=== PATIENT | female | born 1965 | race Caucasian/White ===

== ENCOUNTER 2016-06-03 19:11 | Inpatient (IN) | payer OTHER ==
[~2016-06-03] VITALS: Ht 160 cm; Wt 80.3 kg
--- NOTE | 2016-06-03 19:23 | ED CARDIAC/CP/PALPITATIONS ---
History of Present Illness General Chief Complaint: Chest Pain Stated Complaint: CP Source: patient, family Exam Limitations: no limitations Vital Signs & Intake/Output Vital Signs & Intake/Output Vital Signs Date Time Temp Pulse Resp B/P Pulse O2 O2 Flow FiO2 Ox Delivery Rate 06/03 2156 97.3 87 16 169/72 06/03 1925 98.3 87 20 163/97 98 Room Air Allergies Coded Allergies: No Known Allergies (06/03/16) Reconcile Medications Aspirin (Ecotrin*) 81 MG TABLET.DR 1 TAB PO DAILY HEART/BLOOD (Reported) Clopidogrel Bisulfate (Plavix) (Unknown Strength) TABLET (Unknown Dose) PO DAILY BLOOD THINNER (Reported) Fenofibrate Nanocrystallized (Fenofibrate) (Unknown Strength) TABLET (Unknown Dose) PO DAILY CHOLESTEROL/TRIGLYCERIDES (Reported) Lisinopril (Unknown Strength) TABLET (Unknown Dose) PO DAILY BP (Reported) Metformin HCl (Unknown Strength) TABLET (Unknown Dose) PO BID DM (Reported) Metoprolol Tartrate (Lopressor) (Unknown Strength) TABLET (Unknown Dose) PO BID HEART/BP (Reported) Multivitamin (Multi-Day Vitamins) 1 EACH TABLET 1 TAB PO DAILY SUPPLEMENT ( Reported) Nitroglycerin (Nitrostat) 0.4 MG TAB.SUBL 1 TAB SL AD PRN CHEST PAIN ( Reported) 1st sign of attack; may repeat every 5 minutes until relief; if pain persists after 3 tablets in 15 minutes, prompt medical att Triage Nurses Notes Reviewed? yes Onset: Abrupt Duration: hour(s): Timing: recent history Quality/Severity: moderate Location: central Radiation: left shoulder Activities at Onset: none Prior Chest Pain/Card Workup: cardiac cath, heart attack Modifying Factors: Improves With: rest. Aspirin Today: 81 mg x 1, provided at home Associated Symptoms: diaphoresis HPI: 50 yo woman h/o mi 8 years ago, 2 stents, presents with 2 hours of 7/10 substernal chest pressure radiating to the left shoulder, mild shortness of breath and diaphoresis, mild nausea. No dizziness, fever, chills, cough, nausea, vomiting, diarrhea. Past History Medical History Any Pertinent Medical History? see below for history Cardiovascular: CAD, hypertension, hyperlipidemia, myocardial infarction Endocrine: diabetes Surgical History Surgical History: none Family History Hx Contributory? No Review of Systems Review of Systems Constitutional: Reports: no symptoms. EENTM: Reports: no symptoms. Respiratory: Reports: no symptoms. Cardiovascular: Reports: no symptoms. GI: Reports: no symptoms. Genitourinary: Reports: no symptoms. Musculoskeletal: Reports: no symptoms. Skin: Reports: no symptoms. Neurological/Psychological: Reports: no symptoms. Hematologic/Endocrine: Reports: no symptoms. Immunologic/Allergic: Reports: no symptoms. All Other Systems: Reviewed and Negative Physical Exam Physical Exam General Appearance: well developed/nourished, mild distress Head: atraumatic, normal appearance Eyes: Bilateral: normal appearance, PERRL, EOMI. Ears, Nose, Throat: normal pharynx, normal ENT inspection, hearing grossly normal Neck: normal inspection, supple, full range of motion Respiratory: normal breath sounds, chest non-tender, no respiratory distress, quiet respiration, lungs clear Cardiovascular: regular rate/rhythm Gastrointestinal: normal bowel sounds, soft, non-tender, no organomegaly Rectal: pt declines Back: normal inspection Extremities: normal inspection, normal capillary refill, normal range of motion, no edema Neurologic/Psych: no motor/sensory deficits, awake, alert, oriented x 3 Skin: intact, normal color, warm/dry Core Measures ACS in differential dx? Yes ASA ordered for poss ACS? Yes-ordered Severe Sepsis Present: No Septic Shock Present: No Progress Differential Diagnosis: AMI, CHF/pulm edema, unstable angina Plan of Care: Orders Procedure Date/time Status Nothing by Mouth 06/04 B Active Lab Add-on Test 06/04 2155 Active Patient Data 06/03 2145 Active Saline Lock 06/03 2122 Active Misc Message 06/03 2122 Active ED Holding Orders 06/03 2122 Active Vital Signs 06/03 2122 Active Code Status 06/03 2122 Active Admit to inpatient 06/03 2121 Active Add-on Test (ER Only) 06/03 2121 Active Intake & Output 06/03 2042 Active PARTIAL THROMBOPLASTIN TIME 06/04 1999 Complete PROTHROMBIN TIME 06/04 1999 Complete LIPID PANEL 06/04 1999 Active TROPONIN LEVEL 06/03 1922 Active LIPASE 06/03 1922 Active HEPATIC FUNCTION PANEL 06/03 1922 Active D-DIMER 06/03 1922 Complete CBC WITHOUT DIFFERENTIAL 06/03 1922 Complete BASIC METABOLIC PANEL 06/03 1922 Active AMYLASE 06/03 1922 Active EKG 06/03 191 Active Laboratory Tests 06/03/16 2000: Anion Gap 12, Estimated GFR > 60, BUN/Creatinine Ratio 22.5, Glucose 147 H, Calcium 9.8, Total Bilirubin 0.6, Direct Bilirubin 0.3, AST 26, ALT 57 H, Alkaline Phosphatase 75, Troponin I 0.05, Total Protein 7.6, Albumin 4.5, Triglycerides Pending, Cholesterol Pending, LDL Cholesterol, Calc Pending, HDL Cholesterol Pending, Cholesterol/HDL Ratio Pending, Amylase 52, Lipase 257, PT 11.5, INR 1.10, APTT 32, D-Dimer < 200, CBC w Diff NO MAN DIFF REQ, RBC 4.98, MCV 81.7, MCH 27.0, RDW 14.3, MPV 8.0, Gran % 66.8, Lymphocytes % 23.5, Monocytes % 8.1, Eosinophils % 1.2, Basophils % 0.4, Absolute Granulocytes 6.9 H, Absolute Lymphocytes 2.4, Absolute Monocytes 0.8 H, Absolute Eosinophils 0.1 , Absolute Basophils 0, PUBS MCHC 33.1 Diagnostic Imaging: Viewed by Me: Radiology Read. Discussed w/RAD: Radiology Read. CXR Impression: no acute abnormality, no infiltrates, normal size heart, normal mediastinum Initial ED EKG: normal axis, normal intervals, normal p-waves, normal QRS complex, normal sinus rhythm Comments: PATIENT: TANK SCHWARZ PRESENT AGE: 50 PATIENT ACCOUNT NO: [id number] : 64 LOCATION: [facility] ORDERING PHYSICIAN: COCO SMITH MD SERVICE DATE: 06/03/16 EXAM TYPE: RAD - XRY-PORTABLE CHEST XRAY EXAMINATION: XR PORTABLE CHEST CLINICAL INFORMATION: Chest pain COMPARISON: None TECHNIQUE: Portable AP view of the chest was obtained. FINDINGS: The lungs are clear with no focal consolidation. No evidence of pneumothorax, pulmonary edema, or pleural effusions. The cardiomediastinal silhouette is unremarkable. No acute osseous findings. IMPRESSION: No acute cardiopulmonary findings. DICTATED BY: KEI ROSEN MD DATE/TIME DICTATED:06/03/162036 SUBSTANCE ABUSE COUNSELOR:REKHA DATE/TIME TRANSCRIBED:06/03/162036 CONFIDENTIAL, DO NOT COPY WITHOUT APPROPRIATE AUTHORIZATION. <Electronically signed in Other Vendor System> SIGNED BY: KEI ROSEN MD 03/21/17 2041 Departure Departure Disposition: STILL A PATIENT Condition: Stable Clinical Impression Primary Impression: Unstable angina Referrals: UNKNOWN Departure Forms: Customer Survey General Discharge Information Admission Note Spoke With: ABELARDO PETERSEN PhD,KINGSLEY Garrido Documentation of Exam: Documentation of any treatments & extenuating circumstances including Concerns Regarding Discharge (functional status, medication knowledge or non-compliance, living conditions, etc.) that warrant an admission rather than observation: pt at high risk for cardiac event... prior heart attack, diabetic.... presents with nitro responsive chest pain.... pt to be admitted with iv heparin, supportive medications. Consider med stabilization vs cath. Critical Care Note Critical Care Note Critical Care Time: 30-74 min
--- NOTE | 2016-06-03 19:30 | NUR ---
RECEIVED 50 YO FEMALE C/O CHEST HEAVINESS AND LEFT ARM PAIN X FEW DAYS, WORSE THIS EVENING. PT WITH HX OF CARDIAC CATH WITH STENTS X 2 8 YEARS AGO. NO C/O SOB.
[2016-06-03] MEDS ORDERED: LISINOPRIL5 M1 PO (19:53)
[2016-06-03] MEDS ORDERED: PLAVIX75 M1 PO (19:53)
[2016-06-03] MEDS ORDERED: FENOFIBRATE145 M1 PO (19:53)
[2016-06-03] MEDS ORDERED: LOPRESSOR50 M1 PO (19:54)
[2016-06-03] MEDS ORDERED: ASPIRIN EC81 M1 PO (19:54)
[2016-06-03] MEDS ORDERED: NITROSTAT0.4 M1 SL (19:54)
[2016-06-03] MEDS ORDERED: METFORMIN HCL500 M3 PO (19:54)
[2016-06-03] MEDS ORDERED: MULTI-DAY VITA1 EACH PO (19:55)
--- NOTE | 2016-06-03 19:56 | NUR ---
PT MEDICATED WITH NITRO, ASPIRIN AND TYENOL PER ORDER.
--- NOTE | 2016-06-03 20:07 | NUR ---
LABS SENT (BLUE,SST,LAV,PAYAN)
[2016-06-03 20:24] LABS: ABSOLUTE BASOPHIL COUNT 0 /CUMM (0.0-0.2); ABSOLUTE EOSINOPHIL COUNT 0.1 /CUMM (0.0-0.7); ABSOLUTE GRANULOCYTE CT 6.9 /CUMM (1.4-6.5); ABSOLUTE LYMPH COUNT 2.4 /CUMM (1.2-3.4); ABSOLUTE MONOCYTE COUNT 0.8 /CUMM (0.10-0.60); BASOPHIL % 0.4 % (0.0-2.0); EOSINOPHIL % 1.2 % (0-5); GRANULOCYTE % 66.8 % (42.2-75.2); HEMATOCRIT 40.7 % (37-47); MEAN CORPUSCULAR HGB CONC 33.1 G/DL (33.0-37.0); MEAN CORPUSCULAR VOLUME 81.7 FL (81.0-99.0); PLATELET COUNT 506 /CUMM (130-400); RBC DISTRIBUTION WIDTH 14.3 % (11.5-14.5); RED BLOOD CELL CT 4.98 /CUMM (4.20-5.40); WHITE BLOOD CELL COUNT 10.4 /CUMM (4.8-10.8)
--- NOTE | 2016-06-03 20:41 | RADIOLOGY REPORT ---
EXAMINATION: XR PORTABLE CHEST CLINICAL INFORMATION: Chest pain COMPARISON: None TECHNIQUE: Portable AP view of the chest was obtained. FINDINGS: The lungs are clear with no focal consolidation. No evidence of pneumothorax, pulmonary edema, or pleural effusions. The cardiomediastinal silhouette is unremarkable. No acute osseous findings. IMPRESSION: No acute cardiopulmonary findings.
--- NOTE | 2016-06-03 21:00 | NUR ---
PT REPORTS CP IMPROVING AFTER BEING MEDICATED. PT REPORTS PAIN 2/10
[2016-06-03 21:30] LABS: PT 11.5 SEC (9.4-12.5); PTT 32 SEC (25-37)
--- NOTE | 2016-06-03 21:52 | History & Physical ---
AGUSTIN SPENCE MD 06/03/16 1939: General Information and HPI MD Statement: I have seen and personally examined FREDA SCHWARZ and documented this H&P. The patient is a 50 year old F who presented with a patient stated chief complaint of chest pain. Source of Information: patient Exam Limitations: no limitations History of Present Illness: Ms. Schwarz is a pleasant 50 year old female with PMH HTN, HLD, PR, CAD s/p drug-eluting stent x 2 (April, November 2007) on aspirin and plavix and type 2 diabetes mellitus who presents with chief complaint of chest pain. As per Freda, she started experiencing this chest pain about 3 days ago and it has been intermittent since this time. It feels as though someone is "sitting on my chest", it radiates to the left shoulder and left arm and was significantly improved with sublingual nitroglycerin; the pain score dropped from a 7/10 to a 1-2/10 with the nitroglycerin. Nothing makes the pain worse, including exertion. Patient does report she was just eating supper when the pain began and she was not anxious or nervous at the time of onset. There is a report of recent increased stress however, due to her son living in [place] crashing his car and currently being unemployed. Patient denies diaphoresis, dizziness, palpitations, nausea, vomiting, reflux like symptoms with the chest pain. She also denies fever, chills, recent URI, congestion, shortness of breath, abdominal pain or decreased exercise tolerance. In regards to patient's prior cardiac history, she recently moved from [place] and has not seen a retouching operator in about 1.5 years (prior retouching operator is Dr. Reece in [place]). When she had a myocardial infarction 8 years ago, she was taken for cath and had one drug-eluting stent placed. Later that year in November of 2007, she had a stress test and subsequently had another stent placed. She has been on plavix and aspirin since this time. She has not experienced chest pain since that time until 3 days ago when this new chest pain began. Social history is negative for tobacco, alcohol or illicit drug use. 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 She performs her ADLs and IADLs independantly. Family history is significant for a mother who had a PR in her 40s and a father who had a triple bypass in his 60s. Surgical history is only significant for drug-eluting stent placement x 2 as noted above. Allergies/Medications Allergies: Coded Allergies: No Known Allergies (06/03/16) Home Med list Aspirin (Ecotrin*) 81 MG TABLET.DR 1 TAB PO DAILY HEART/BLOOD (Reported) Atorvastatin Calcium (Lipitor) 40 MG TABLET 1 TAB PO DAILY hld (Reported) Clopidogrel Bisulfate (Plavix) (Unknown Strength) TABLET 75 MG PO DAILY BLOOD THINNER (Reported) Lisinopril (Unknown Strength) TABLET 5 MG PO DAILY BP (Reported) Metformin HCl (Unknown Strength) TABLET 500 MG PO BID DM (Reported) Metoprolol Tartrate (Lopressor) (Unknown Strength) TABLET 50 MG PO BID HEART/ BP (Reported) Multivitamin (Multi-Day Vitamins) 1 EACH TABLET 1 TAB PO DAILY SUPPLEMENT ( Reported) Nitroglycerin (Nitrostat) 0.4 MG TAB.SUBL 1 TAB SL AD PRN CHEST PAIN ( Reported) 1st sign of attack; may repeat every 5 minutes until relief; if pain persists after 3 tablets in 15 minutes, prompt medical att Compliance With Home Meds: GOOD Past History Travel History Traveled to [place] past 21 day No Medical History Neurological: NONE EENT: Drug-eluting stent placement x 2 Cardiovascular: CAD, hypertension, hyperlipidemia, myocardial infarction Respiratory: NONE Gastrointestinal: NONE Hepatic: NONE Renal: NONE Musculoskeletal: NONE Psychiatric: NONE Endocrine: diabetes Surgical History Surgical History: none Past Family/Social History Psychosocial History Where do you live? Home Who Do You Live With? spouse Services at Home: None Primary Language: Pashto Smoking Status: Never Smoked ETOH Use: denies use Illicit Drug Use: denies illicit drug use Living Will? no Functional Ability ADLs Independent: dressing, eating, toileting, bathing. Ambulation: independent IADLs Independent: shopping, housework, finances, food prep, telephone, transportation , medication admin. 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 EENTM: Denies: blurred vision, double vision, hearing changes, nasal congestion. Cardiovascular: Reports: chest pain. Denies: orthopena, palpitations, peripheral edema, syncope. Respiratory: Denies: cough, short of breath, sputum production, wheezing. GI: Denies: abdominal pain, nausea, changes in stool, vomiting. Genitourinary: Denies: dysuria, hematuria. Musculoskeletal: Reports: joint pain (Left shoulder), muscle pain (Left arm). Denies: back pain. Skin: Denies: change in skin color, change in hair/nails, rash. Neurological/Psychological: Denies: confusion, headache, numbness, paresthesia, pre-existing deficit, unable to move lower ext, unable to move upper ext. Hematologic/Endocrine: Denies: bruising, bleeding. Immunologic/Allergic: Denies: splenectomy. All Other Systems: Reviewed and Negative Exam & Diagnostic Data Last 24 Hrs of Vital Signs/I&O Vital Signs Date Time Temp Pulse Resp B/P Pulse O2 O2 Flow FiO2 Ox Delivery Rate 06/037 97.3 87 16 169/72 06/03 1926 98.3 87 20 163/97 98 Room Air Physical Exam General Appearance Alert, Oriented X3, Cooperative, No Acute Distress Skin No Rashes, No Significant Lesion HEENT Atraumatic, PERRLA, EOMI, Mucous Membr. moist/pink Neck Supple, No JVD, +2 Carotid Pulse wo Bruit Lymphatic Cervical nl Cardiovascular Regular Rate, Normal S1, Normal S2, No Murmurs Lungs Clear to Auscultation, Normal Air Movement Abdomen Normal Bowel Sounds, Soft, No Tenderness, No Masses Neurological Normal Speech, Strength at 5/5 X4 Ext, Normal Tone Extremities No Clubbing, No Cyanosis, No Edema, No Tenderness/Swelling Vascular Pulses Symmetrical Last 24 Hrs of Labs/Nehemias: Laboratory Tests 06/03/161999: Anion Gap 12, Estimated GFR > 60, BUN/Creatinine Ratio 22.5, Glucose 147 H, Calcium 9.8, Total Bilirubin 0.6, Direct Bilirubin 0.3, AST 26, ALT 57 H, Alkaline Phosphatase 75, Troponin I 0.05, Total Protein 7.6, Albumin 4.5, Triglycerides 290 H, Cholesterol 191, LDL Cholesterol, Calc 92, HDL Cholesterol 41, Cholesterol/HDL Ratio 5 H, Amylase 52, Lipase 257, PT 11.5, INR 1.10, APTT 32, D-Dimer < 200, CBC w Diff NO MAN DIFF REQ, RBC 4.98, MCV 81.7, MCH 27.0, RDW 14.3, MPV 8.0, Gran % 66.8, Lymphocytes % 23.5, Monocytes % 8.1, Eosinophils % 1.2, Basophils % 0.4, Absolute Granulocytes 6.9 H, Absolute Lymphocytes 2.4, Absolute Monocytes 0.8 H, Absolute Eosinophils 0.1, Absolute Basophils 0, PUBS MCHC 33.1 Diagnostic Data EKG Results NSR HR 92 bpm, small Q wave in aVF (new from prior). CXR Results IMPRESSION: No acute cardiopulmonary findings. Assessment/Plan Assessment: Ms. Schwarz is a pleasant 50 year old female with PMH HTN, HLD, PR, CAD s/p drug-eluting stent x 2 (April,November 2007) on aspirin and plavix and type 2 diabetes mellitus who presented to the [place] ED with chief complaint of chest pain. This chest pain has been present for 3 days, is intermittent, is described as a person sitting on her chest, radiates to her left shoulder and left arm, is improved with nitrogylcerin and not worsened with exertion. Patient denies fever, chills, diaphoresis, palpitations, shortness of breath, nausea, dyspepsia or jaw pain. In the ED: Vital signs showed T 98.3, HR 87, RR 20, BP 163/97 and O2 saturation of 98% on room air. Labs showed unremarkable CBC. BEP significant for Na 133, Cl 95, BUN 18, Glu 147, ALT 57, Trigylcerides 290 (otherwise lipid panel WNL). DDimer <200. CXR showed no acute cardiopulmonary findings. EKG showed NSR HR 92 bpm, small Q wave aVf (new from prior). Patient is admitted to the telemetry floor and the following is the management: 1. Unstable angina * LINDA risk score is 4 pts, equivalent to 20% risk all cause mortality * Patient already received aspirin, continue daily * Continue IV heparin that was started in the ED * Continue plavix, beta susan, oxygen * Continue to trend troponins and EKG (2 am, 8 am) * NPO for possible cardiac cath tomorrow pending cardio recs * Follow up cardiology consult * Echo pending * Nitro top 1 gm Q6 2. HTN, HLD * Vital signs Q shift * Lopressor 50 mg PO BID * Continue statin 3. Diabetes mellitus, type 2 * Accuchecks TIDAC/HS * Novolog sliding scale TIDAC * Hold metformin FULL CODE DVTP: Heparin gtt NPO at midnight for possible cardiac cath Mild pain pathway As Ranked By This Provider Problem List: 1. Unstable angina 2. Diabetes mellitus 3. HTN (hypertension) 4. HLD (hyperlipidemia) Core Measures/Miscellaneous Acute Coronary Syndrome ACS Diagnosis: No Cerebrovascular Accident CVA/TIA Diagnosis: No Congestive Heart Failure CHF Diagnosis: No Venous Thromboembolism VTE Risk Factors: Acute medical illness, Age > 40, Obesity [facility] prophylaxis d/t: No contraindications No VTE Pharm Prophylaxis d/t: No contraindications VTE Diagnosis: No VTE Type: NONE VTE Confirmed by (Test): NONE Severe Sepsis Severe Sepsis Present: No Septic Shock Septic Shock Present: No Miscellaneous Documentation Attending Case Discussed With: Dr. Jet White MD PHD Primary Care Physician: FERNANDO CADE MD Patient sees these Specialists Dr. Reece, retouching operator Level of Patient Care: Telemetry JOS PETERSEN,[facility] 06/04/16 0019: Resident Review Statement Resident Statement: examined this patient, discussed with research program intern, agreed with research program intern Other Findings: 50 y/o F with a PMH of CAD s/p drug eluting stents x 2 in 2007, HTN, HLD, DM who presents to the ED with complaints of chest pressure and left arm pain x 3 days. She recently moved from [place] and she last saw her retouching operator Dr. Reece 1 1/ 2 yrs ago. She reports having midsternal intermittent chest pain over the last 3 days. Not exacerbated by exertion but relieved with rest and aspirin. Vitals: Stable Physical Exam: WNL Labs: Trop x 1 0.05, other labs WNL EKG: SR with no ST-T wave changes Problem List: 1) Unstable Angina 2) CAD s/p drug eluting stents x 2 3) HTN 4) HLD 5) DM Plan: * Admit to Telemetry for unstable angina * LINDA score of 4 with an all cause mortality of 20% * Patient has been given aspirin and started on heparin drip in the ED * Trend trops and EKG x2, Nitro paste * NPO PMN for possible cardiac cath * Continue other home medications except for Metformin * Fingersticks and Novolog sliding scale * DVT PPx: IV Heparin * Pain Pathway: Tylenol PRN * Code status: Full Code
--- NOTE | 2016-06-03 22:19 | NUR ---
PT BED ASSIGNMENT 175-1
--- NOTE | 2016-06-03 22:26 | NUR ---
PT APPEARS TO BE RESTING COMFORTABLY. PT DENIES CP AND SOB. NO APPARENT DISTRESS.
[2016-06-03] MEDS ORDERED: LIPITOR40 M1 PO (22:38)
--- NOTE | 2016-06-03 23:29 | NUR ---
PT A/O X4. RESP UNALBORED. NSR. SKIN WARM AND DRY, NO APPARENT DISTRESS
[2016-06-04 00:17] VITALS: BP 148/72
[2016-06-04 05:34] LABS: ABSOLUTE BASOPHIL COUNT 0 /CUMM (0.0-0.2); ABSOLUTE EOSINOPHIL COUNT 0.1 /CUMM (0.0-0.7); ABSOLUTE GRANULOCYTE CT 4.4 /CUMM (1.4-6.5); ABSOLUTE LYMPH COUNT 2.8 /CUMM (1.2-3.4); ABSOLUTE MONOCYTE COUNT 0.7 /CUMM (0.10-0.60); BASOPHIL % 0.5 % (0.0-2.0); EOSINOPHIL % 1.1 % (0-5); GRANULOCYTE % 54.3 % (42.2-75.2); HEMATOCRIT 38.5 % (37-47); MEAN CORPUSCULAR HGB 26.8 PG (27.0-31.0); MEAN CORPUSCULAR HGB CONC 32.5 G/DL (33.0-37.0); MEAN CORPUSCULAR VOLUME 82.6 FL (81.0-99.0); MEAN PLATELET VOLUME 8.5 FL (7.4-10.4); PLATELET COUNT 444 /CUMM (130-400); RBC DISTRIBUTION WIDTH 14.4 % (11.5-14.5); RED BLOOD CELL CT 4.66 /CUMM (4.20-5.40)
[2016-06-04 05:43] LABS: PTT 49 SEC (25-37)
[2016-06-04 08:00] VITALS: BP 138/80
--- NOTE | 2016-06-04 08:17 | Cons- Cardiology ---
General Information and HPI Consulting Request Date of Consult: 06/04/16 Requested By: ABELARDO PETERSEN PhD,KINGSLEY Garrido History of Present Illness: Katie is a 50 year old female with history of hypertension, dyslipidemia, diabetes and coronary artery disease s/p old inferior AK with stent placement in [place] in 2007. Over the past three days she has noted an intermittent mild to moderate chest pressure radiating to her left arm. There is minimal associated shortness of breath and no lightheadedness or palpitations. Her cardiac enzymes are positive for a NSTEMI. Allergies/Medications Allergies: Coded Allergies: No Known Allergies (06/03/16) Home Med List: Aspirin (Ecotrin*) 81 MG TABLET.DR 1 TAB PO DAILY HEART/BLOOD (Reported) Atorvastatin Calcium (Lipitor) 40 MG TABLET 1 TAB PO DAILY hld (Reported) Clopidogrel Bisulfate (Plavix) (Unknown Strength) TABLET 75 MG PO DAILY BLOOD THINNER (Reported) Lisinopril (Unknown Strength) TABLET 5 MG PO DAILY BP (Reported) Metformin HCl (Unknown Strength) TABLET 500 MG PO BID DM (Reported) Metoprolol Tartrate (Lopressor) (Unknown Strength) TABLET 50 MG PO BID HEART/ BP (Reported) Multivitamin (Multi-Day Vitamins) 1 EACH TABLET 1 TAB PO DAILY SUPPLEMENT ( Reported) Nitroglycerin (Nitrostat) 0.4 MG TAB.SUBL 1 TAB SL AD PRN CHEST PAIN ( Reported) 1st sign of attack; may repeat every 5 minutes until relief; if pain persists after 3 tablets in 15 minutes, prompt medical att Review of Systems Review of Systems: A twelve point review of systems is unremarkable. Past History Travel History Traveled to [place] past 21 day No Medical History Blood Transfusion Hx: No Neurological: NONE EENT: Drug-eluting stent placement x 2 Cardiovascular: CAD, hypertension, hyperlipidemia, myocardial infarction, CARDIAC STENTS Respiratory: NONE Gastrointestinal: NONE Hepatic: NONE Renal: NONE Musculoskeletal: NONE Psychiatric: NONE Endocrine: diabetes Blood Disorders: NONE Cancer(s): NONE NETWORK DEVELOPMENT COORDINATOR/Reproductive: NONE Surgical History Surgical History: CARDIAC STENTS Psychosocial History Where Do You Live? Home Who Do You Live With? spouse Services at Home: None Primary Language: Romanian Smoking Status: Never Smoked ETOH Use: denies use Illicit Drug Use: denies illicit drug use Living Will? no Functional Ability ADLs Independent: dressing, eating, toileting, bathing. Ambulation: independent IADLs Independent: shopping, housework, finances, food prep, telephone, transportation , medication admin. 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 Exam & Diagnostic Data Vital Signs and I&O Vital Signs Date Time Temp Pulse Resp B/P Pulse O2 O2 Flow FiO2 Ox Delivery Rate 06/04 0017 97.8 69 20 148/72 96 Room Air 06/03 2330 97.0 75 18 165/89 96 06/03 2157 97.3 87 16 169/72 06/03 215 97.3 77 16 169/72 96 06/03 1926 98.3 87 20 163/97 98 Room Air Intake & Output 06/04 1600 06/04 0800 06/04 0000 06/03 1600 06/03 0800 06/03 0000 Intake Total 152 Output Total Balance 152 Intake, IV 152 Intake, Oral 0 Patient 177 lb Weight Physical Exam: General: WD/ WN female in NAD; alert and oriented x 3 HEENT: NC/ AT, PERRL, EOMI, clear oropharynx Neck: no JVD, no carotid bruit Heart: RRR w/o murmur Lungs: clear bilaterally Abdomen: soft, obese, NT, +ve bowel sounds Extremities: no edema Diagnostic Data EKG Results sinus rhythm Assessment/Plan Assessment/Plan * This patient has multiple risk factors for CAD and known CAD with prior AK and stent placement. She now has typical chest pain with abnormal cardiac enzymes consistent with a NSTEMI. We will plan on cardiac catheterization tomorrow or today if her enzymes continue to rise or if she has recurrent chest pain. * Obtain an echocariogram. * Follow cardiac enzymes until they peak. * Begin aspirin 325mg daily, Plavix 75mg daily and IV heparin. Begin Integrelin. * NTG paste 1/2 inch Q6 hours. Continue her statin and Metoprolol. * O2 2L by NC Consult Acknowledgment - Thank you for your consult request.
--- NOTE | 2016-06-04 08:32 | PN- Housestaff ---
Subjective Follow-up For: NSTEMI Tele-Events Since Last Visit: NSR in 60s Subjective: Patient seen and examined at bedside. Came in last night with a chest pain radiating to the left shoulder. This morning she reports chest discomfort is very mildy present, 1 out of 10 at most. Also endorses some soreness in the left arm but feels much better than yest overall with no acute complaints. Denies any chest pain, dyspnea, palpitations, abdominal pain, n/v/c/d, headache, dizziness, lightheadedness. Review of Systems Constitutional: Reports: see HPI. Objective Last 24 Hrs of Vital Signs/I&O Vital Signs Date Time Temp Pulse Resp B/P Pulse O2 O2 Flow FiO2 Ox Delivery Rate 06/04 0017 97.8 69 20 148/72 96 Room Air 06/03 2330 97.0 75 18 165/89 96 06/03 215 97.3 87 16 169/72 06/03 215 97.3 77 16 169/72 96 06/03 1926 98.3 87 20 163/97 98 Room Air Intake & Output 06/04 1600 06/04 0800 06/04 0000 Intake Total 152 Output Total Balance 152 Intake, IV 152 Intake, Oral 0 Patient 80.286 kg Weight Physical Exam General Appearance: Alert, Oriented X3, Cooperative, No Acute Distress Other Physical Findings: Skin No Rashes, No Significant Lesion HEENT Atraumatic, PERRLA, EOMI, Mucous Membr. moist/pink Neck Supple, No JVD, +2 Carotid Pulse wo Bruit Lymphatic Cervical nl Cardiovascular Regular Rate, Normal S1, Normal S2, No Murmurs Lungs Clear to Auscultation, Normal Air Movement Abdomen Normal Bowel Sounds, Soft, No Tenderness, No Masses Neurological Normal Speech, Strength at 5/5 X4 Ext, Normal Tone Extremities No Clubbing, No Cyanosis, No Edema, No Tenderness/Swelling Vascular Pulses Symmetrical Current Medications: Current Medications Sig/Jass Start time Last Medication Dose Route Stop Time Status Admin Acetaminophen 650 MG Q6P PRN 06/03 2244 AC PO Acetaminophen 975 MG ONCE ONE 06/04 1999 DC 06/03 PO 06/03 Acetaminophen 0 .STK-MED ONE 06/03 1954 DC PO Aspirin 0 .STK-MED ONE 06/03 1954 DC PO Aspirin 325 MG ONCE ONE 06/03 1929 DC 06/03 PO 03/21 1931 2018 Aspirin Buffered 81 MG DAILY 06/04 1000 AC PO Atorvastatin Calcium 40 MG 1700 06/04 1700 AC PO Clopidogrel Bisulfate 75 MG DAILY 06/04 1000 AC PO Heparin Sodium 0 .STK-MED ONE 06/03 2132 DC (Porcine) .ROUTE Heparin Sodium 4,000 UNIT ONCE ONE 06/03 2129 DC 06/03 (Porcine) IV 06/03 Heparin Sodium 25,000 UNIT Q24H 06/03 2129 AC 06/03 (Porcine) IV 2207 Sodium Chloride 500 ML Insulin Aspart 0 TIDAC 06/04 0800 AC SC Metoprolol Tartrate 50 MG BID 06/04 1000 AC PO Metoprolol Tartrate 0 .STK-MED ONE 06/03 2133 DC PO Metoprolol Tartrate 50 MG ONCE ONE 06/03 2129 DC 06/03 PO 06/03 Nitroglycerin 1 GM Q6 06/03 2359 AC 06/04 TOP 0612 Nitroglycerin 0.4 MG ONCE ONE 06/04 1999 DC 06/03 SL 06/03 Nitroglycerin 0.4 MG ONCE ONE 06/04 1999 MI 06/03 SL 06/03 Nitroglycerin 0 .STK-MED ONE 06/03 1954 [facility] Last 24 Hrs of Lab/Nehemias Results Last 24 Hrs of Labs/Mics: Laboratory Tests 06/04/16 0820: Troponin I Pending 06/04/16 0400: Anion Gap 9, Estimated GFR > 60, BUN/Creatinine Ratio 25.0, APTT 49 H, CBC w Diff NO MAN DIFF REQ, RBC 4.66, MCV 82.6, MCH 26.8 L, RDW 14.4, MPV 8.5, Gran % 54.3, Lymphocytes % 34.9, Monocytes % 9.2, Eosinophils % 1.1, Basophils % 0.5, Absolute Granulocytes 4.4, Absolute Lymphocytes 2.8, Absolute Monocytes 0.7 H, Absolute Eosinophils 0.1, Absolute Basophils 0, PUBS MCHC 32.5 L 06/04/16 0200: Troponin I 0.37 *H 06/03/161999: Anion Gap 12, Estimated GFR > 60, BUN/Creatinine Ratio 22.5, Glucose 147 H, Calcium 9.8, Total Bilirubin 0.6, Direct Bilirubin 0.3, AST 26, ALT 57 H, Alkaline Phosphatase 75, Troponin I 0.05, Total Protein 7.6, Albumin 4.5, Triglycerides 290 H, Cholesterol 191, LDL Cholesterol, Calc 92, HDL Cholesterol 41, Cholesterol/HDL Ratio 5 H, Amylase 52, Lipase 257, PT 11.5, INR 1.10, APTT 32, D-Dimer < 200, CBC w Diff NO MAN DIFF REQ, RBC 4.98, MCV 81.7, MCH 27.0, RDW 14.3, MPV 8.0, Gran % 66.8, Lymphocytes % 23.5, Monocytes % 8.1, Eosinophils % 1.2, Basophils % 0.4, Absolute Granulocytes 6.9 H, Absolute Lymphocytes 2.4, Absolute Monocytes 0.8 H, Absolute Eosinophils 0.1, Absolute Basophils 0, PUBS MCHC 33.1 Assessment/Plan Assessment: Ms. Wilson is a pleasant 50 year old female with PMH HTN, HLD, [place], CAD s/p drug-eluting stent x 2 (April, November 2007) on aspirin and plavix and type 2 diabetes mellitus who presented to the [place] ED with chief complaint of chest pain. This chest pain has been present for 3 days, is intermittent, is described as a person sitting on her chest, radiates to her left shoulder and left arm, is improved with nitrogylcerin and not worsened with exertion. Patient denies fever, chills, diaphoresis, palpitations, shortness of breath, nausea, dyspepsia or jaw pain. # NSTEMI LINDA risk score is 4 pts, equivalent to 20% risk all cause mortality. Serial troponin 0.05 -> 0.37 -> 0.25 * Follow TTE * Cont heparin drip, Plavix 75mg daily, Nitro top 1 gm Q6 * Start Aspirin 325mg daily and IV Aggrastat, * Continue home meds statin and Metoprolol. * Oxygen support * Follow up cardiology consult * Echo pending * Resume diet as trops are trending down # HTN, HLD * Vitals per protocol * Cont Lopressor 50 mg PO BID and statin # Diabetes mellitus, type 2 * Accuchecks TIDAC/HS * Novolog sliding scale TIDAC * Hold metformin Heart healthy Mild pain pathway DVTP: Heparin gtt Full code Problem List: 1. Unstable angina 2. Diabetes mellitus 3. HTN (hypertension) 4. HLD (hyperlipidemia) Pain Ratin Pain Location: Substernal & left arm Pain Goal: Remain pain free Pain Plan: NGT Mild pathway Tomorrow's Labs & Rationales: BEP
[2016-06-04 13:58] LABS: PTT 51 SEC (25-37)
[2016-06-04 16:24] VITALS: BP 128/70
[2016-06-04 22:03] LABS: PTT 65 SEC (25-37)
[2016-06-04 22:20] VITALS: BP 144/82
--- NOTE | 2016-06-04 22:47 | NUR ---
06/04/16 AT 2220 PATIENT BP 156/90. PATIENT DENIES CHEST PAIN, HEADACHE OR DISCOMFORT. SCHEDULED LOPRESSOR GIVEN AT 2220. MD AGUSTIN SPENCE WAS NOTIFIED. THIS RN WILL RE-CHECK BP IN 1 HOUR. WILL CONTINUE TO MONITOR. PATIENT IS SUPPOSE TO BE ON 2L OXYGEN VIA NC PER ACS PROTOCOL. PATIENT REMOVED THE NASAL CANULA CLAIMING IT WAS DRYING HER NOSE. HER O2 SAT WAS 94% RA. THIS RN CALLED RESPIRATORY AND REQUESTED A BUBBLE HUMIDIFIER. CURRENTLY PATIENT IS ON 2L OXYGEN VIA NC WITH BUBBLE HUMIDIFIER ATTACHED.
--- NOTE | 2016-06-04 23:29 | NUR ---
06/04/16 2315 BP RE-CHECK 144/82. PATIENT CONTINUES TO BE A SYMPTOMATIC. PATIENT RESTING COMFORTABLY IN BED.
[2016-06-04 23:45] VITALS: BP 140/82
--- NOTE | 2016-06-05 06:29 | PN- Housestaff ---
Subjective Follow-up For: NSTEMI Tele-Events Since Last Visit: NSR Subjective: Patient seen and examined at bedside. No events reported overnight. Offers no complaints this morning. She reports feeling very well without any chest pain/ discomfort or dyspnea. Denies any f/c, palpitations, abdominal pain, n/v/c/d, dyspepsia or jaw pain, headache, dizziness, lightheadedness. Review of Systems Constitutional: Reports: see HPI. Objective Last 24 Hrs of Vital Signs/I&O Vital Signs Date Time Temp Pulse Resp B/P Pulse O2 O2 Flow FiO2 Ox Delivery Rate 06/05 822 138/80 06/05 08 Nasal 2.0L Cannula 06/05 08 98.2 75 20 138/80 97 Nasal 2.0L Cannula 06/05 0000 97 Nasal 2.0L Cannula 06/04 2345 97.7 78 20 140/82 97 Nasal Cannula 06/04 2221 93 156/90 06/04 2220 144/82 06/04 1624 98.3 69 18 128/70 97 Nasal 2.0L Cannula Intake & Output 06/05 1600 06/05 0800 06/05 0000 Intake Total 622 366 Output Total Balance 622 366 Intake, IV 322 126 Intake, Oral 300 240 Physical Exam General Appearance: Alert, Oriented X3, Cooperative, No Acute Distress Other Physical Findings: Skin No Rashes, No Significant Lesion HEENT Atraumatic, PERRLA, EOMI, Mucous Membr. moist/pink Neck Supple, No JVD, +2 Carotid Pulse wo Bruit Lymphatic Cervical nl Cardiovascular Regular Rate, Normal S1, Normal S2, No Murmurs Lungs Clear to Auscultation, Normal Air Movement Abdomen Normal Bowel Sounds, Soft, No Tenderness, No Masses Neurological Normal Speech, Strength at 5/5 X4 Ext, Normal Tone Extremities No Clubbing, No Cyanosis, No Edema, No Tenderness/Swelling Vascular Pulses Symmetrical Current Medications: Current Medications Sig/Jass Start time Last Medication Dose Route Stop Time Status Admin Acetaminophen 650 MG Q6P PRN 06/03 2245 DCD PO Aspirin Buffered 325 MG DAILY 06/05 1000 DCD 06/05 PO 0823 Atorvastatin Calcium 40 MG 1700 06/04 1700 DCD 06/04 PO 1655 Clopidogrel Bisulfate 75 MG DAILY 06/04 1000 DCD 06/05 PO 0824 Heparin Sodium 2,400 UNIT ONCE ONE 06/04 1500 DC 06/04 (Porcine) IV 06/04 1501 1457 Heparin Sodium 25,000 UNIT Q24H 06/03 2130 DCD 06/04 (Porcine) IV 2220 Sodium Chloride 500 ML Insulin Aspart 0 TIDAC 06/04 0800 DCD SC Magnesium Chloride 64 MG BID 06/04 1215 DC 06/04 PO 06/04 2300 2221 Metoprolol Tartrate 50 MG BID 06/04 1000 DCD 06/05 PO 0823 Nitroglycerin 1 GM Q6 06/03 2359 DCD 06/05 TOP 0513 Patient Medication 1 ED ONE 06/05 0000 NR Teaching ED 06/05 2359 Tirofiban HCl 12.5 MG Q24H 06/04 1215 DCD 06/04 N/A 1 UNIT IV 1233 Last 24 Hrs of Lab/Nehemias Results Last 24 Hrs of Labs/Mics: Laboratory Tests 06/04/167: APTT 65 H 06/04/16 1240: APTT 51 H Assessment/Plan Assessment: Ms. Wilson is a pleasant 50 year old female with PMH HTN, HLD, [place], CAD s/p drug-eluting stent x 2 (April, November 2007) on aspirin and plavix and type 2 diabetes mellitus who presented to the [place] ED with chief complaint of chest pain. This chest pain has been present for 3 days, is intermittent, is described as a person sitting on her chest, radiates to her left shoulder and left arm, is improved with nitrogylcerin and not worsened with exertion. Patient denies fever, chills, diaphoresis, palpitations, shortness of breath, nausea, dyspepsia or jaw pain. # NSTEMI LINDA risk score is 4 pts, equivalent to 20% risk all cause mortality. Serial troponin 0.05 -> 0.37 -> 0.25 * Follow TTE * Cont heparin drip, Plavix 75mg daily, Nitro top 1 gm Q6 * Cont Aspirin 325mg daily and IV Aggrastat, * Continue home meds statin and Metoprolol. * Oxygen support * Follow up cardiology consult * Echo pending * Proceed with cardiac cath today # HTN, HLD * Vitals per protocol * Cont Lopressor 50 mg PO BID and statin # Diabetes mellitus, type 2 * Accuchecks TIDAC/HS * Novolog sliding scale TIDAC * Hold metformin NPO for cath Mild pain pathway DVTP: Heparin gtt Full code Problem List: 1. Unstable angina 2. Diabetes mellitus 3. HTN (hypertension) 4. HLD (hyperlipidemia) Pain Ratin Pain Location: 0 Pain Goal: Remain pain free Pain Plan: Mild pathway Tomorrow's Labs & Rationales: None
--- NOTE | 2016-06-05 07:35 | Patient Discharge Instructions ---
Discharge Instructions General Discharge Information You were seen/treated for: Myocardial Infarction Watch for these problems: Worsening or persistent chest pain/discomfort, shortness of breath Special Instructions: Continue IV Integrilin or Aggrastat pending cardiac cath. Please follow up with your gate services supervisor Dr. White and primary care physician within a week of discharge. Diet Continue normal diet: Yes Recommended Diet: Heart Healthy Activity Full Activity/No Limits: Yes (as tolerated) Acute Coronary Syndrome Inclusion Criteria At DC or during hospital stay patient has or had the following: ACS DIAGNOSIS Yes Discharge Core Measures Meds if any: Prescribed or Continued at Discharge PREET/ARB if EF <40% Yes Aspirin Yes Beta-Mirella Yes Statin Yes Meds if any: NOT Prescribed or Continued at Discharge Congestive Heart Failure Inclusion Criteria At DC or during hospital stay patient has or had the following: CHF DIAGNOSIS No Discharge Core Measures Meds if any: Prescribed or Continued at Discharge Meds if any: NOT Prescribed or Continued at Discharge Cerebrovascular accident Inclusion Criteria At DC or during hospital stay patient has or had the following: CVA/TIA Diagnosis No Discharge Core Measures Meds if any: Prescribed or Continued at Discharge Meds if any: NOT Prescribed or Continued at Discharge Venous thromboembolism Inclusion Criteria VTE Diagnosis No VTE Type NONE VTE Confirmed by (Test) NONE Discharge Core Measures - Per Current guidelines, there needs to be overlap - treatment for the first 5 days of Warfarin therapy. - If discharged on Warfarin prior to 5 days of - overlap therapy, the patient will need to be - assessed for post discharge needs including - *Post discharge parental anticoagulation - *Warfarin and/or parental anticoagulation education - *Follow up date to check INR post discharge At least 5 days overlap therapy as Inpatient No Meds if any: Prescribed or Continued at Discharge Note: Overlap Therapy is Warfarin and Anticoagulant Meds if any: NOT Prescribed or Continued at Discharge
[2016-06-05 08:00] VITALS: BP 138/80
[2016-06-05] MEDS ORDERED: NITRO-BID1 GM TOP (08:10)
[2016-06-05] MEDS ORDERED: ASPIRIN EC325 M2 PO (08:10)
[2016-06-05 08:23] VITALS: BP 138/80
--- NOTE | 2016-06-05 08:30 | Discharge Summary ---
Visit Information Visit Dates Admission Date: 06/03/16 Discharge Date: 06/05/2016 Hospital Course Course Attending Physician: ABELARDO PETERSEN PhD,KINGSLEY Garrido Primary Care Physician: ALYSSIA PETERSEN,FERNANDO [place] Hospital Course: This is a 50 year old female with PMH HTN, HLD, [place], CAD s/p drug-eluting stent x 2 (April,November 2007) on aspirin and plavix and type 2 diabetes mellitus who presented to the [place] ED with chief complaint of chest pain. Chest pain had been present for 3 days, is intermittent, is described as a person sitting on her chest, radiates to her left shoulder and left arm, improved with nitrogylcerin and not worsened with exertion. Patient denied fever, chills, diaphoresis, palpitations, shortness of breath, nausea, dyspepsia or jaw pain. NSTEMI LINDA risk score is 4 pts, equivalent to 20% risk all cause mortality. Patient was started on aspirin, Plavix, Nitropaste and Aggrastat. Her home medications starting and metoprolol were continued. Through the course of the stent there was initially an increase in troponin to 0.37 with subsequent decreased to 0.25 after which we did not trend the troponin and a further. Patient remained symptomatic with resolution of chest pain through the course of his stay. Given her extensive cardiovascular risk we will transfer the patient for cardiac catheterization. HTN, HLD Patient has history of hypertension, since arrival blood pressure remained stable with highest recorded of around 156/90. She was started on how home antihypertensive medications and never required extra BP medications for control. Patient is being discharged on her home dose of antihypertensive medication and to continue to follow-up with primary care physician. Diabetes mellitus, type 2 Patient has history of diabetes mellitus. Upon admission the patient was kept on Accu-Cheks before meals and also was started on insulin sliding scales. Per hospital protocol metformin was kept on hold. Patient will be discharged to continue with her home antidiabetic medications. She was reeducated to do adhere to good health practices to help control the diabetes. Allergies: Coded Allergies: No Known Allergies (06/03/16) Pertinent Lab Results: Laboratory Tests 06/04 06/04 06/04 06/04 2117 1240 0820 0400 Chemistry Sodium (137 - 145 mmol/L) 135 L Potassium (3.5 - 5.1 mmol/L) 4.1 Chloride (98 - 107 mmol/L) 103 Carbon Dioxide (22 - 30 mmol/L) 23 Anion Gap (5 - 16) 9 BUN (7 - 17 mg/dL) 15 Creatinine (0.5 - 1.0 mg/dL) 0.6 Estimated GFR (>60 ml/min) > 60 BUN/Creatinine Ratio (7 - 25 %) 25.0 Magnesium (1.6 - 2.3 mg/dL) 1.6 Troponin I (< 0.11 ng/ml) 0.25 *H Coagulation APTT (25 - 37 SEC) 65 H 51 H 49 H Hematology CBC w Diff NO MAN DIFF REQ WBC (4.8 - 10.8 /CUMM) 8.0 RBC (4.20 - 5.40 /CUMM) 4.66 Hgb (12.0 - 16.0 G/DL) 12.5 Hct (37 - 47 %) 38.5 MCV (81.0 - 99.0 FL) 82.6 MCH (27.0 - 31.0 PG) 26.8 L RDW (11.5 - 14.5 %) 14.4 Plt Count (130 - 400 /CUMM) 444 H MPV (7.4 - 10.4 FL) 8.5 Gran % (42.2 - 75.2 %) 54.3 Lymphocytes % (20.5 - 51.1 %) 34.9 Monocytes % (1.7 - 9.3 %) 9.2 Eosinophils % (0 - 5 %) 1.1 Basophils % (0.0 - 2.0 %) 0.5 Absolute Granulocytes (1.4 - 6.5 /CUMM) 4.4 Absolute Lymphocytes (1.2 - 3.4 /CUMM) 2.8 Absolute Monocytes (0.10 - 0.60 /CUMM) 0.7 H Absolute Eosinophils (0.0 - 0.7 /CUMM) 0.1 Absolute Basophils (0.0 - 0.2 /CUMM) 0 PUBS MCHC (33.0 - 37.0 G/DL) 32.5 L 06/04 06/03 0200 2000 Chemistry Sodium (137 - 145 mmol/L) 133 L Potassium (3.5 - 5.1 mmol/L) 3.8 Chloride (98 - 107 mmol/L) 95 L Carbon Dioxide (22 - 30 mmol/L) 27 Anion Gap (5 - 16) 12 BUN (7 - 17 mg/dL) 18 H Creatinine (0.5 - 1.0 mg/dL) 0.8 Estimated GFR (>60 ml/min) > 60 BUN/Creatinine Ratio (7 - 25 %) 22.5 Glucose (65 - 99 mg/dL) 147 H Calcium (8.4 - 10.2 mg/dL) 9.8 Total Bilirubin (0.2 - 1.3 mg/dL) 0.6 Direct Bilirubin (< 0.4 mg/dL) 0.3 AST (14 - 36 U/L) 26 ALT (9 - 52 U/L) 57 H Alkaline Phosphatase (<127 U/L) 75 Troponin I (< 0.11 ng/ml) 0.37 *H 0.05 Total Protein (6.3 - 8.2 g/dL) 7.6 Albumin (3.5 - 5.0 g/dL) 4.5 Triglycerides (<150 mg/dL) 290 H Cholesterol (<200 MG/DL) 191 LDL Cholesterol, Calc (65 - 129 mg/dL) 92 HDL Cholesterol (40 - 60 mg/dL) 41 Cholesterol/HDL Ratio (0.00 - 4.23 %) 5 H Amylase (30 - 110 U/L) 52 Lipase (23 - 300 U/L) 257 Coagulation PT (9.4 - 12.5 SEC) 11.5 INR (0.90 - 1.19) 1.10 APTT (25 - 37 SEC) 32 D-Dimer (70 - 232 ng/ml) < 200 Hematology CBC w Diff NO MAN DIFF REQ WBC (4.8 - 10.8 /CUMM) 10.4 RBC (4.20 - 5.40 /CUMM) 4.98 Hgb (12.0 - 16.0 G/DL) 13.5 Hct (37 - 47 %) 40.7 MCV (81.0 - 99.0 FL) 81.7 MCH (27.0 - 31.0 PG) 27.0 RDW (11.5 - 14.5 %) 14.3 Plt Count (130 - 400 /CUMM) 506 H MPV (7.4 - 10.4 FL) 8.0 Gran % (42.2 - 75.2 %) 66.8 Lymphocytes % (20.5 - 51.1 %) 23.5 Monocytes % (1.7 - 9.3 %) 8.1 Eosinophils % (0 - 5 %) 1.2 Basophils % (0.0 - 2.0 %) 0.4 Absolute Granulocytes (1.4 - 6.5 /CUMM) 6.9 H Absolute Lymphocytes (1.2 - 3.4 /CUMM) 2.4 Absolute Monocytes (0.10 - 0.60 /CUMM) 0.8 H Absolute Eosinophils (0.0 - 0.7 /CUMM) 0.1 Absolute Basophils (0.0 - 0.2 /CUMM) 0 PUBS MCHC (33.0 - 37.0 G/DL) 33.1 Disposition Summary Disposition Principal Diagnosis: Non-ST elevated myocardial infarction Additional Diagnosis: Hypertension Hyperlipidemia Diabetes mellitus Discharge Disposition: other general hospital Discharge Instructions General Discharge Information Code Status: Full Code Patient's Diet: Patient is nothing by mouth pending cardiac catheterization Patient's Activity: As tolerated Follow-Up Instructions/Appts: Please call and make a follow-up with your primary care physician within one week after discharge. Please call and make a follow-up with your agent broker Dr. White within 1 week after discharge Medications at Discharge Discharge Medications: Stop taking the following medications: Aspirin (Ecotrin*) 81 MG TABLET.DR ORAL DAILY Nitroglycerin (Nitrostat) 0.4 MG TAB.SUBL SUBLINGUAL As Directed as needed for CHEST PAIN Continue taking these medications: Lisinopril (Lisinopril) (Unknown Strength) TABLET 5 Milligram ORAL DAILY Clopidogrel Bisulfate (Plavix) (Unknown Strength) TABLET 75 Milligram ORAL DAILY Metoprolol Tartrate (Lopressor) (Unknown Strength) TABLET 50 Milligram ORAL TWICE DAILY Metformin HCl (Metformin HCl) (Unknown Strength) TABLET 500 Milligram ORAL TWICE DAILY Multivitamin (Multi-Day Vitamins) 1 EACH TABLET 1 Tablet ORAL DAILY Atorvastatin Calcium (Lipitor) 40 MG TABLET 1 Tablet ORAL DAILY Comments: Last Taken: 06/04 Time: 1700 Start taking the following new medications: Insulin Aspart (Novolog) 100 UNIT/ML VIAL 0 Units Inject into fatty tissue 3 TIMES DAILY BEFORE MEALS Qty = 30 No Refills Heparin (Heparin-1/2NS 25,000 Units/500) 25,000 UNIT/500 ML (50 UNIT/ML) IV.SOLN 840 Unit INTRAVEN CONTINUOUS INFUSION Qty = 1 No Refills Tirofiban-0.9% Sodium Chloride (Aggrastat 12.5 MG/250 Ml) 12.5 MG/250 ML (50 MCG /ML) PLAST..BAG 12.5 Milligram INTRAVEN DAILY Qty = 1 No Refills Nitroglycerin (Nitro-Bid) 2 % OINT...G. 1 Gram On the skin EVERY SIX HOURS Qty = 30 No Refills Aspirin (Ecotrin*) 325 MG TABLET. 325 Milligram ORAL DAILY Qty = 30 No Refills Copies To: ALYSSIA PETERSEN,FERNANDO [place]
[2016-06-05] MEDS ORDERED: HEPARIN-1/25000 UNI1 IV (08:31)
[2016-06-05] MEDS ORDERED: TIROFIBAN IV (08:32)
[2016-06-05] MEDS ORDERED: NOVOLOG100 UNIT/2 SC (08:39)
== END 2016-06-05 09:40 | disposition short-term general hospital (02) | DRG 282 ==
LOC: ENRESERVTM → ENRESERVDT → ERH 19:11 → ERHI 21:22 → ENPENDDIS 21:22 → 1NO 21:22
PROVIDERS: Internal Medicine; Pediatrics; Student in an Organized Health Care Education/Training Program; ADMIT Internal Medicine Interventional Cardiology
DX: I21.4 Non-ST elevation (NSTEMI) myocardial infarction (principal); E11.9 Type 2 diabetes mellitus without complications; I10 Essential (primary) hypertension; Z95.5 Presence of coronary angioplasty implant and graft; I25.10 Atherosclerotic heart disease of native coronary artery without angina pectoris; E78.5 Hyperlipidemia, unspecified; Z79.84 Long term (current) use of oral hypoglycemic drugs
CPT/HCPCS: 1NP; 36415; 82436; 93005; 93010; J1644; J3246; J3490